=== PATIENT | female | born 1965 | race Caucasian/White ===

== ENCOUNTER 2017-04-07 12:24 | Outpatient (CLI) | payer OTHER ==
[~2017-04-07 12:24] MED LIST: Gadobenate Dimeglumine 529 MG/1 ML (20ML VIAL) ONE
--- NOTE | 2017-04-07 15:59 | RAD ---
FIVE VIEWS LUMBOSACRAL SPINE: 04/07/17 COMPARISON: None. HISTORY: Low back pain. FINDINGS: AP, lateral, cone down and flexion/extension views of the lumbosacral spine were performed. The verte bral bodies and intervertebral discs demonstrate normal height and alignment without fracture or subl uxation. There are small osteophytes in the upper lumbar spine. Alignment is unchanged with flexion a nd extension. IMPRESSION: Mild degenerative changes of the lumbar spine with unchanged alignment with bending. POS: HANK
--- NOTE | 2017-04-07 16:55 | MRI ---
MRI OF THE THORACIC SPINE WITHOUT AND WITH CONTRAST: Date: 04/07/17 COMPARISON: None. HISTORY: Mid and upper back pain for months. TECHNIQUE: Multiplanar, multisequence MR images were obtained of the thoracic spine without and with IV contrast . FINDINGS: Mild disc desiccation is seen in the lower thoracic intercerebral discs. The vertebral bodies and int ervertebral discs demonstrate normal height and alignment without fracture or subluxation. There is a well circumscribed hemangioma within a mid thoracic vertebral body. The visualized cord demonstrates normal signal throughout. No abnormal enhancement is seen on this examination. There are foci of high T2 signal in the right kidney which likely represent cysts. The other preverte bral and paraspinal soft tissues are unremarkable. There are small anterior osteophytes in the thoracic spine. No significant posterior disc bulge or pr otrusion is seen throughout the thoracic spine. The central canal stenosis is present. No neural fora brennan stenosis is present. No posterior facet arthrosis. IMPRESSION: No significant thoracic spine abnormality. POS: HANK
--- NOTE | 2017-04-07 16:59 | MRI ---
MRI OF THE LUMBAR SPINE WITH AND WITHOUT IV CONTRAST: Date: 04/07/17 INDICATION: Chronic low back pain. CONTRAST: 20 mL MultiHance. FINDINGS: Conus is seen to terminate at L1. There is a T2 hyperintense, intermediate to low T1 signal intensity lesion seen within the right mid kidney. This is difficult to fully characterize on the postcontrast series due to some pulsation megha fact overlying the lesion. It measures up to 1.5 cm. Visualized retroperitoneum otherwise is within normal limits. At L5-S1, there is mild facet joint degenerative change and broad based bulge. At L4-5, there is moderate right and mild left facet joint degenerative change. There is no appreciab le central canal or neural foraminal narrowing. At L3-4, there is no appreciable central canal or neural foraminal narrowing. At L2-3, there is no appreciable central canal or neural foraminal narrowing. At L1-L2, there is no appreciable central canal or neural foraminal narrowing. No definite marrow sig nal abnormality is grossly evident. IMPRESSION: 1. No definite marrow signal abnormality seen involving the lumbar spine to suggest metastatic disea se. 2. Mild spondylosis of the lumbar spine without appreciable central canal or neural foraminal narrow ing. 3. 1.5 cm hypodensity right mid kidney is not fully characterized on current examination due to some pulsation artifact. Recommend renal ultrasound for further characterization. POS: HANK
--- NOTE | 2017-04-07 17:08 | MRI ---
MRI CERVICAL SPINE WITH IV CONTRAST: Date: 04/07/17 HISTORY: Chronic back pain for 20 years with pain radiating to legs. Patient has history of breast cancer. CONTRAST: 20 mL MultiHance IV. FINDINGS: Cervicomedullary junction has a normal MRI appearance. Normal signal intensity is demonstrated throug hout the brain. The spinal cord is normal in contour and signal intensity. No abnormal areas of enhancement are seen after the administration of intravenous contrast. C2-C3 Level: There is no disc bulge or disc herniation. Central spinal canal and neural foramina are patent. C3-4 Level: There is no disc bulge or disc herniation. Central spinal canal and neural foramina are patent. C4-5 Level: There is a mild broad based disc osteophyte complex with mild uncinate process hypertrop hy. This mildly effaces the ventral subarachnoid space with mild left-sided neural foraminal narrowin g. There is mild left-sided neural foraminal narrowing, but the right neural foramen is patent. C5-6 Level: There is a broad based disc osteophyte complex with uncinate process hypertrophy. Findin gs narrow the ventral subarachnoid space at this level. The neural foramina are patent. C6-7 Level: There is uncinate process hypertrophy at this level resulting in mild effacement of the ventral subarachnoid space. Neural foramina are patent. C7-T1 Level: There is a mild broad based disc osteophyte complex resulting in slight effacement of t he ventral subarachnoid space. Neural foramina are widely patent. IMPRESSION: 1. Minimal degenerative changes in the cervical spine without significant central canal or neural fo raminal narrowing at any level. 2. No abnormal areas of enhancement are seen after the administration of intravenous contrast. POS: HANK
--- NOTE | 2017-04-07 17:47 | MRI ---
MRI OF THE BRAIN WITHOUT AND WITH CONTRAST 04/07/17 HISTORY: Dizziness and unsteadiness for two months. Point tenderness on her forehead. TECHNIQUE: Multiplanar and multisequence MRI images were obtained of the brain without contrast. FINDINGS: The brain demonstrates normal signal intensity on all obtained sequences. No restricted diffusion or abnormal enhancement are seen on this examination. There is no evidence of hydrocephalus, intracranial hemorrhage or extra-axial fluid collection. The e xpected flow voids are present. The corpus callosum, pituitary, and craniocervical junction are unrem arkable. The calvarium and overlying soft tissues are unremarkable. The visualized paranasal sinuses and masto id air cells are well aerated. IMPRESSION: No evidence of acute intracranial abnormality. POS: WAYNEH
== END 2017-04-07 12:25 | disposition home or self-care (01) ==
LOC: SCSMRI 12:24
PROVIDERS: ATTEND Surgery
DX: M47.26 Other spondylosis with radiculopathy, lumbar region (principal); M47.22 Other spondylosis with radiculopathy, cervical region; M54.14 Radiculopathy, thoracic region; R29.818 Other symptoms and signs involving the nervous system
CPT/HCPCS: 70553; 72120; 72156; 72157; 72158; A9579

== ENCOUNTER 2017-06-18 09:48 | Outpatient (CLI) | payer OTHER | END 2017-06-18 09:49 | disposition home or self-care (01) | LOC: CTENTCT 09:48 | PROVIDERS: ATTEND Specialist | DX: J32.9 Chronic sinusitis, unspecified (principal) | CPT/HCPCS: 70486 ==

== ENCOUNTER 2017-11-10 08:00 | Outpatient (CLI) | payer OTHER ==
--- NOTE | 2017-11-10 10:32 | ULT ---
ABDOMEN ULTRASOUND COMPLETE: INDICATIONS: Renal cyst, right side. Followup. TECHNIQUE: Reynoso-scale ultrasound evaluation of the liver, gallbladder, spleen, pancreas, common bile duct, kidne ys, abdominal aorta, and inferior vena cava (IVC). FINDINGS: The liver demonstrates increased echotexture without a discrete lesion. No acute gallbladder patholo gy. The common duct is normal at 4 mm in diameter. No overt hydronephrosis. The left kidney and sp ankita are grossly unremarkable. Within the imaged aspects of the right kidney, there is an 8 mm, round, hypoechoic focus, indicative of a cyst. There is a vague hypoechoic region of the right renal cortex, slightly less than 2 cm in size, within the mid region. This finding does correspond to T2 hyperintensity on the preceding MRI from 04/07/2017. IMPRESSION: Prior indeterminate signal alteration of the mid right kidney seen on previous MRI, is redemonstrated sonographically. The finding is vague and cannot be confirmed as a simple cyst, sonographically. T herefore, as the next step in imaging evaluation, recommend a pre and post contrast renal mass protoc ol CT of the abdomen. POS: HANK
== END 2017-11-10 08:01 | disposition home or self-care (01) ==
LOC: SCSULT 08:00
PROVIDERS: ATTEND Internal Medicine Hematology & Oncology
DX: Z03.89 Encounter for observation for other suspected diseases and conditions ruled out (principal)
CPT/HCPCS: 76700